=== PATIENT | male | born 1980 | race Caucasian/White ===

== ENCOUNTER 2025-01-06 09:05 | Outpatient (CLI) | payer OTHER, SELFPAY ==
--- OUTSIDE RECORDS SUMMARY | 2025-01-06 09:18 | XMS_ITS | Clinical Summary ---
Author Organization [facility] Address [address] [place] [address] Phone Care Team Providers Care Senior Media Planner Name Role Phone Belen, Raquel Laboy APRN, SANGITA Primary Care Pr ovider Chin Elder MD Unavailable [phone] Allergies Active Allergy Reactions Criticality Noted Date Comments Sertraline Other (see Comments) 04/29/2022 Becomes angry Medications lisinopril (PRINIVIL, ZESTRIL) 20 MG Tablet Take 20 mg by mouth daily. Active pantoprazole (PROTONIX) 40 MG Tablet Delayed Response Take 40 mg by mouth daily. Active Tadalafil 5 MG Tablet TK 1 T PO D PRN 0 11/21/2018 Active buPROPion (WELLBUTRIN) 150 MG XL tablet TK 1 T PO D 1 12/22/2018 Active TIZANIDINE HCL PO Take by mouth. Active Aspirin 81 MG Tablet Take 81 mg by mouth daily. Active ferrous sulfate 325 (65 Fe) MG Tablet Take 325 mg by mouth daily. Active folic acid (FOLVITE) 1 MG Tablet Take 1 mg by mouth daily. Active rosuvastatin (CRESTOR) 40 MG Tablet Take 40 mg by mouth daily. Active celecoxib (CeleBREX) 200 MG Capsule Take 200 mg by mouth 2 times daily. Active Cyanocobalamin (B-12 PO) Take by mouth. Active amLODIPine (NORVASC) 10 MG Tablet Take 10 mg by mouth daily. Active Simethicone (GAS-X PO) Take by mouth. Active Phenylephrine-D M-GG-APAP (SUDAFED PE COLD/COUGH PO) Take by mouth. Active diphenhydrAMINE HCl (BENADRYL PO) Take by mouth. Active pregabalin (LYRICA) 150 MG CapsuleIndicati ons:Benign fasciculation-c ramp syndrome Take 1 Capsule by mouth 3 times daily. 90 Capsule 2 02/26/2023 Active Family History Medical History Relation Name Comments Parkinsonism Father Relation Name Status Comments Father Mother Social History Tobacco Use Types Packs/Day Years Used Date Smoking Tobacco: Every Day Cigarettes Smokeless Tobacco: Never Tobacco Cessation:Ready to Q uit: Yes Alcohol Use Standard Drinks/Week Comments No 0 (1 standard drink = 0.6 oz pur e alcohol) Sex and Gender Information Value Date Recorded Sex Assigned at Not on file Legal Sex Male 11:18 PM CDT Gender Identity Not on file Sexual Orientation Not on file Last Filed Vital Signs Vital Sign Reading Time Taken Comments Blood Pressure 128/80 04/29/2022 10:23 AM CDT Pulse 100 04/29/2022 10:23 AM CDT Temperature 36.8 C (98.2 F) 04/29/2022 10:23 AM CDT Respiratory Rate 17 04/29/2022 10:23 AM CDT Oxygen Saturation 98% 04/29/2022 10:23 AM CDT Inhaled Oxygen Concentration - - Weight 129.7 kg (286 lb) 04/29/2022 10:23 AM CDT Height 180.3 cm (5' 11 ) 04/29/2022 10:23 AM CDT Body Mass Index 39.89 04/29/2022 10:23 AM CDT Plan of Treatment Health Maintenance Due Date Last Done Comments Hepatitis C Virus (HCV) Screening 1979 TdaP Immunization 1979 Hepatitis B Immunization (1 of 3 - 19+ 3-dose series) 1998 Influenza Immunization (#1) 2024 SARS-COV-2 Immunization ( - 2023- season) 2024 07/20/2021, 06/28/2021 Colonoscopy 2024 Colorectal Cancer Screening 2024 Respiratory Syncytial Virus (RSV) Immunization (Adult) (1 - 1-dose 75+ series) 2054 Meningococcal Immunization (ACWY) Aged Out No longer eligible b ased on patient's age to complete this topic Pneumococcal Immunization Combined Aged Out No longer eligible b ased on patient's age to complete this topic Rotavirus Immunization Aged Out No lo nger eligible based on patient's age to complete this topic Insurance [facility] Care Teams Senior Media Planner Relationship Specialty Start Date End Date Raquel Glover APRN, BEATER ROOM SUPERVISOR PCP - General Advanced Practice Nurse 04/29/22 Chin Elder MD [address] [place] [id number] Consulting Physician Neurology 04/29/22
--- OUTSIDE RECORDS SUMMARY | 2025-01-06 09:18 | XMS_ITS | Clinical Summary ---
Author Organization [facility] Address [address] [place] [address] Care Team Providers Care Piping Drafter Name Role Phone BelenRaquel PAINTER SHIPYARD Primary Care Provider Allergies No known active allergies Medications acetaminophen-c odeine (TYLENOL with CODEINE #3) 300-30 mg per tablet Take by mouth 4 (four) times a day as needed 10/14/2021 Active ALPRAZolam (XANAX) 0.5 mg tablet Take 0.5 mg by mouth 3 (three) times a day as needed Active amitriptyline (ELAVIL) 50 mg tablet 01/17/2019 Active amLODIPine (NORVASC) 10 mg tablet Take 10 mg by mouth daily 12/12/2021 Active buPROPion XL (WELLBUTRIN XL) 150 mg 24 hr tablet Take by mouth 12/22/2018 Active busPIRone (BUSPAR) 15 mg tablet Take 15 mg by mouth 2 (two) times a day as needed 12/16/2021 Active celecoxib (CeleBREX) 200 mg capsule Take 200 mg by mouth 2 (two) times a day 01/05/2022 Active cyanocobalamin, vitamin B-12, 1,000 mcg tablet extended release Take 1 tablet by mouth daily 12/24/2021 Active docusate sodium (COLACE) 100 mg capsule Take 100 mg by mouth 2 (two) times a day as needed 12/15/2016 Active ferrous sulfate 325 mg (65 mg of elemental iron) tablet Take 325 mg by mouth daily Active folic acid (FOLVITE) 1 mg tablet Take 1,000 mcg by mouth daily 12/16/2021 Active gabapentin (NEURONTIN) 600 mg tablet Take 600 mg by mouth 3 (three) times a day 12/19/2021 Active HYDROcodone-sindhu taminophen (NORCO) 5-325 mg per tablet Take by mouth every 6 (six) hours as needed 01/07/2022 Active lisinopriL (PRINIVIL,ZESTR [place]) 20 mg tablet Take 20 mg by mouth 2 (two) times a day 12/24/[address] (PROTONIX) 40 mg EC tablet Take 40 mg by mouth daily 12/16/2021 Active rosuvastatin (CRESTOR) 40 mg tablet Take 40 mg by mouth nightly at bedtime. 12/24/2021 Active sertraline (ZOLOFT) 50 mg tablet Take 50 mg by mouth daily 12/24/2021 Active tadalafiL (CIALIS) 5 mg tablet TK 1 T PO D PRN 11/21/2018 Active tiZANidine (ZANAFLEX) 4 mg tablet Take by mouth 4 (four) times a day as needed 12/19/2021 Active HYDROcodone-sindhu taminophen (NORCO) 5-325 mg per tabletIndicatio ns:Pain Take 1-2 tablets every 4-6 hours as needed for pain 30 tablet 01/10/2022 Active sildenafiL (VIAGRA) 50 mg tablet USE 1 TABLET 30 MINUTES BEFORE SEXUAL INTERCOURSE. 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 Gender Identity Not on file Sexual Orientation Not on file Obstetrics History Last Filed Vital Signs Vital Sign Reading Time Taken Comments Blood Pressure 148/74 01/10/2022 1:27 PM CDT Pulse - - Temperature - - Respiratory Rate - - Oxygen Saturation - - Inhaled Oxygen Concentration - - Weight 129 kg (284 lb 6.4 oz) 01/31/2022 1:57 PM CDT Height 180.3 cm (5' 11 ) 02/21/2022 1:31 PM CDT Body Mass Index 39.67 01/31/2022 1:57 PM CDT Plan of Treatment Health Maintenance Due Date Last Done Comments Colon Cancer Screening-Colonoscopy 1979 Depression Screening 1979 Hepatitis C Screening 1979 DTaP/Tdap/Td Vaccine (1 - Tdap) 1990 Hepatitis B Screening 1997 Regular Well Visit/Exam 18-64 1997 Covid-19 Vaccine (3 - 2023-2 5 season) 2024 07/20/2021, 06/28/2021 Influenza Vaccine (Season Ended) 2025 HPV Vaccines Aged Out No longer eligi ble based on patient's age to complete this topic Pneumococcal vaccine <65 Aged Out No longer eligible based on patient's age to complete this topic Insurance [employer] Care Teams Piping Drafter Relationship Specialty Start Date End Date Raquel Glover NP PCP - General Nurse Practitioner 01/08/22
--- OUTSIDE RECORDS SUMMARY | 2025-01-06 09:18 | XMS_ITS | Referral Summary ---
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
--- OUTSIDE RECORDS SUMMARY | 2025-01-06 09:18 | XMS_ITS | Encounter Summary ---
Author Organization [facility] Address [address] [place] [address] Phone Care Team Providers Care Assistant Foreman Name Role Phone Lexy Mcwilliams MD Primary Care Provider [phone] Belen, Raquel Laboy APRN, GEOGRAPHIC INFORMATION SYSTEMS MANAGER Primary Care Pr ovider Chin Elder MD Unavailable Encounter Details Date Type Department Care Team (Late st Contact Info) Description 11/19/[address] [facility] [address] [place] [address] Lexy Mcwilliams MD [address] [place] [address] Social History Tobacco Use Types Packs/Day Years Used Date Smoking Tobacco: Every Day Cigarettes Smokeless Tobacco: Never Alcohol Use Standard Drinks/Week Comments No 0 (1 standard drink = 0.6 oz pur e alcohol) Sex and Gender Information Value Date Recorded Sex Assigned at Not on file Legal Sex Male 11:18 PM CDT Gender Identity Not on file Sexual Orientation Not on file COVID-19 Exposure Response Date Recorded In the last 10 days, have yo u been in contact with someone who was confirmed or suspected to have Coronavirus/COVID-19? No / Unsure 11/16/2021 2:44 PM CDT documented as of this encounter Plan of Treatment Not on file documented as of this encounter Visit Diagnoses Not on filedocumented in this encounter Care Teams Assistant Foreman Relationship Specialty Start Date End Date Lexy Mcwilliams MD PCP - General Family Medicine 12/15/16 04/28/22 Raquel Glover APRN, SANGITA PCP - General Advanced Practice Nurse 04/29/22 Chin Elder MD [address] [place] [id number] Consulting Physician Neurology 04/29/22 documented as of this encounter
--- OUTSIDE RECORDS SUMMARY | 2025-01-06 09:18 | XMS_ITS ---
Author Name Baseline Team Reynold draper, [facility] Address [address] [place] [address] Phone [phone] Organization [facility] Care Team Providers Care Social Media Marketing Specialist Name Role Phone Baseline Team, [facility] Unavailable CAROLANN, WALTER Unavailable [phone] Reason for Referral Not Available Allergies, adverse reactions, alerts Allergen Type Reaction Severity Status Onset Date Sertraline Allergy to substance (disorder) Other (see Comments) Mild Active 2022-04-29 History of medication use Medication Class Instructions Start Date End Date Lisinopril 20 mg Tab Take 20 mg by mouth daily. 09-02 No Data Available Pantoprazole Sodium 40 mg Ta b delayed rel Take 40 mg by mouth daily. 2023-09-02 No Data Avail able Tadalafil 5 mg Tab TK 1 T PO D PRN 2018-11-21 No Shaji a Available TIZANIDINE HCL PO Take by mouth. 2023-09-02 No Data Available aspirin 81 MG tablet Take 81 mg by mouth daily. 09-02 No Data Available Ferrous Sulfate 325 (65 Fe) MG Tab Take 325 mg by mouth daily. 2023-09-02 No Data Available Folic Acid 1 mg Tab Take 1 mg by mouth daily. No Data Available Rosuvastatin Calcium 40 mg Tab Take 40 mg by mouth supriya ly. 2023-09-02 No Data Available Celecoxib 200 mg Cap Take 200 mg by mout h 2 times daily. 2023-09-02 No Data Available Cyanocobalamin (B-12 PO) Take by mouth. 2023-09-02 N o Data Available amLODIPine Besylate 10 mg Tab Take 10 mg by mouth anibal y. 2023-09-02 No Data Available Simethicone (GAS-X PO) Take by mouth. 2023-09-02 No Data Available Ypqemktqijzcm-XQ-KI-APAP (SUDAFED PE COLD/COUGH PO) Take by mouth. 2023-09-02 No Data Avail able diphenhydrAMINE HCl (BENADRY L PO) Take by mouth. 2023-09-02 No Data Available Pregabalin 150 mg Cap Take 1 Capsule by mouth 3 times daily. 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 OCD (obsessive compulsive disorder) Active 09-02 N/A Encounters Encounters Type Facility Date of Service Diagnosis/Co mplaint No Data Available [facility] 09/02/2023 Es sential (primary) hypertensionType 2 diabetes mellitus without complicationsDorsalgia, unspecifiedObsessive-compulsive disorder, unspecified Vital Signs Date of Collection Vitals 2023-09-02 09:00:00 Height - 180.34 cmWe ight - 127.01 kgBody Mass Index (BMI) - 39.05 kg/m2 Social History Social History Social History Observation Description Effec tive Time Current Smoking Status Current every day smoker 2025-01-06 Sex Male Gender identity Man Functional Status No Information Mental Status No Information Assessments Date of Service Assessments 2023-09-02 09:00:00 Baseline visitHypert ensionDiabetes type 2, controlledBack painOCD (obsessive compulsive disorder) Plan of Care Date of Service Plans 2023-09-02 09:00:00 Baseline visit in 1 yearSee a Primary Care Provider (PCP) for an annual preventative visit to screen for age and risk related health conditions.Other issues to discuss with your PCP: all chronic conditions Goals Date Goal 2023-09-02 Find your partner in health. Prevention is granger. 2023-09-02 Review vaccines with PCP. 2023-09-02 Thank you for comple ting the baseline visit today with [facility]. Our goal is to provide you with a roadmap to be the healthiest version of you. Health Concerns Date Concern 2023-09-02 Baseline VisitConfir med consents are signed/name/date of / current location, which is in a state of licensure.Patient is aware they are not required to disclose information about disabilities or genetic conditions.Reviewed the purpose of the baseline visit. 2023-09-02 Preventative healthP CP: Jose Jung Preventative exam: 20222023-09-02 Routine vaccine stat usUp to date per pt 2023-09-02 Upcoming surgeries/p rocedures: none
[2025-01-06 09:54] LABS: Hematocrit 45.7 % (42.0-52.0)
[2025-01-10 14:10] LABS: Testosterone Free 456.7 pg/mL (35.0-155.0); Testosterone Total 1322 ng/dL (250-1100)
== END 2025-01-06 09:06 | disposition home or self-care (01) ==
PROVIDERS: Visit Provider Urology
DX: R79.89 Other specified abnormal findings of blood chemistry (principal)
CPT/HCPCS: 36415; 82670; 84402; 84403; 85014; 85018